=== PATIENT | male | born 1985 | race Caucasian/White ===

== ENCOUNTER 2024-02-22 14:54 | Emergency (ER) | payer OTHER ==
[~2024-02-22] VITALS: Ht 175.3 cm; Wt 53.4 kg
[2024-02-22] MEDS ORDERED: AMOX-580 PO (16:09)
[2024-02-22] MEDS ORDERED: IBUP-1984 PO (16:09)
[2024-02-22 16:19] VITALS: BP 131/96; PULSE 60; RESP 16; TEMP 98.2; O2SAT 100
== END 2024-02-22 16:21 | disposition home or self-care (01) ==
LOC: ER 14:55
DX: S61.452A Open bite of left hand, initial encounter (principal); L03.114 Cellulitis of left upper limb; W55.01XA Bitten by cat, initial encounter; Y93.89 Activity, other specified; Y92.89 Other specified places as the place of occurrence of the external cause; Y99.8 Other external cause status
CPT/HCPCS: 99283